=== PATIENT | male | born 1955 | race Caucasian/White ===

== ENCOUNTER 2023-02-15 06:46 | Day surgery (SDC) | payer OTHER ==
[~2023-02-15] VITALS: Ht 177.8 cm; Wt 113.1 kg
[~2023-02-15 06:46] MED LIST: ASPI81CH PO; ATOR40TA PO; HYDCHL25 PO; IBUP200 PO; LOSA50 PO
[2023-02-15 07:13] VITALS: BP 174/89
--- NOTE | 2023-02-15 08:12 | NUR ---
02/15/23 0812 Radha Bennett MONITOR INTACT WITH CONTINUOUS PULSE OXIMETRY, CONTINUOUS END TITAL CO2, AND INTERMITTENT BLOOD PRESSURE.
[2023-02-15 08:36] VITALS: BP 140/91
[2023-02-15 08:47] VITALS: BP 148/90
--- NOTE | 2023-02-15 08:59 | NUR ---
DISCHARGE PT A&OX4, VSS/RA, MARSHALL PO, IV DC'D, DC INS PROVIDED, PT REP UNDERSTANDING. 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
== END 2023-02-15 09:00 | disposition home or self-care (01) ==
LOC: ORSCMMR 06:46 → ORD 08:00 → ORSCMMR 08:00 → ORD 08:45 → ORSCMMR 09:00
PROVIDERS: Internal Medicine Gastroenterology
PROC: 0DBK8ZX Excision of Ascending Colon, Via Natural or Artificial Opening Endoscopic, Diagnostic (ICD-10-PCS; principal; 2023-02-15 08:00)
PROC: 0DBM8ZX Excision of Descending Colon, Via Natural or Artificial Opening Endoscopic, Diagnostic (ICD-10-PCS; principal; 2023-02-15 08:00)
DX: Z12.11 Encounter for screening for malignant neoplasm of colon (principal); Z86.010 Personal history of colon polyps; D12.2 Benign neoplasm of ascending colon; D12.4 Benign neoplasm of descending colon; K57.30 Diverticulosis of large intestine without perforation or abscess without bleeding; K64.8 Other hemorrhoids; G47.33 Obstructive sleep apnea (adult) (pediatric); Z86.711 Personal history of pulmonary embolism; E78.2 Mixed hyperlipidemia; Z86.73 Personal history of transient ischemic attack (TIA), and cerebral infarction without residual deficits; E66.9 Obesity, unspecified; Z68.35 Body mass index [BMI] 35.0-35.9, adult; Z87.891 Personal history of nicotine dependence; Z79.82 Long term (current) use of aspirin; Z79.899 Other long term (current) drug therapy
CPT/HCPCS: 88305; J2704; J7120

== ENCOUNTER → 2023-12-12 | Outpatient (CLI) | payer OTHER | LOC: LAB SHORT 07:03 → LAB 07:03 | DX: C77.0 Secondary and unspecified malignant neoplasm of lymph nodes of head, face and neck (principal); C44 Other and unspecified malignant neoplasm of skin | CPT/HCPCS: 88173 ==

== ENCOUNTER → 2024-02-25 | Outpatient (CLI) | payer OTHER | LOC: LAB SHORT 14:14 → LAB 14:14 | DX: C44.49 Other specified malignant neoplasm of skin of scalp and neck (principal) | CPT/HCPCS: 88305; 88341; 88342 ==